=== PATIENT | female | born 1990 | race Caucasian/White ===

== ENCOUNTER 2019-07-18 18:56 | Emergency (ER) | payer MEDICAID ==
[~2019-07-18] VITALS: Ht 167.6 cm; Wt 68.9 kg
[2019-07-18 19:14] VITALS: BP 121/72; Ht 167.6 cm; Wt 68.9 kg
== END 2019-07-18 20:57 | disposition home or self-care (01) ==
LOC: ED 18:56
DX: S93.402A Sprain of unspecified ligament of left ankle, initial encounter (principal); X50.1XXA Overexertion from prolonged static or awkward postures, initial encounter; Y93.89 Activity, other specified; Y92.89 Other specified places as the place of occurrence of the external cause; Y99.8 Other external cause status